=== PATIENT | male | born 1960 | race African-American/Black ===

== ENCOUNTER 2017-06-23 10:45 | Emergency (ER) | payer MEDICAID ==
--- NOTE | 2017-06-23 11:44 | ER Document Report ---
HPI - HPI Patient complains to provider of: chronic right shoulder blade/muscle pain Onset: Other Pain Level: Denies Context: 56-year-old male complaining of muscle pain around his right shoulder blade. He was told that it was a pinched nerve when he was incarcerated in physical therapy made it go away. This episode has been there several months. Is worse when he uses his right arm. There is no cervical neck pain. No paresthesias. - MUSCULOSKELETAL Musculoskeletal: REPORTS: Extremity pain - right shoulder pain Past Medical History - General Information source: Patient - Social History Smoking Status: Never Smoker Frequency of alcohol use: Social Drug Abuse: Marijuana Lives with: Family Family History: None Patient has suicidal ideation: No Patient has homicidal ideation: No - Past Medical History Cardiac Medical History: Reports: Hx Hypertension - borderline Pulmonary Medical History: Reports: Hx Asthma Renal/ Medical History: Denies: Hx Peritoneal Dialysis Surgical Hx: Negative Vertical Provider Document - CONSTITUTIONAL Agree With Documented VS: Yes Exam Limitations: No Limitations - INFECTION CONTROL TRAVEL OUTSIDE OF THE [place] IN LAST 30 DAYS: No - HEENT HEENT: Normal ENT Exam, Normocephalic - NECK Neck: Supple, Thyroid Normal. negative: Lymphadenopathy-Left, Lymphadenopathy- Right - RESPIRATORY Respiratory: Breath Sounds Normal, No Respiratory Distress - CARDIOVASCULAR Cardiovascular: Regular Rate, Regular Rhythm - GI/ABDOMEN Gastrointestinal: Abdomen Soft, Abdomen Non-Tender - MUSCULOSKELETAL/EXTREMETIES Musculoskeletal/Extremeties: MAEW, Tender - right periscapular muscles - NEURO Level of Consciousness: Awake, Alert - DERM Integumentary: Warm, Dry, No Rash Course - Re-evaluation Re-evalutation: 06/23/17 CBC and chemistry are within normal limits the BUN and creatinine are normal will start on lisinopril and have him follow-up with family practice doctor within the next month. - Vital Signs Vital signs: Temp Pulse Resp BP Pulse Ox 97.7 F 104 H 16 168/110 H 97 06/23/17 10:59 06/23/17 10:59 06/23/17 10:59 06/23/17 11:13 06/23/17 10:59 - Laboratory Result Diagrams: 06/23/17 12:13 06/23/17 12:13 Discharge - Discharge Clinical Impression: Chronic right periscapular muscle pain Hypertension Qualifiers: Hypertension type: unspecified Qualified Code(s): I10 - Essential (primary) hypertension Condition: Good Disposition: HOME, SELF-CARE Instructions: Angiotensin Converting Enzyme Inhibitor Medication ([facility]), Anti- Inflammatory Medication ([facility]), High Blood Pressure, Requiring Treatment ([facility]), Muscle Relaxers ([facility]), Warm Packs ([facility]) Additional Instructions: warm compress See family practice doctor for your follow-up care and recheck on your blood pressures referral has been given to you in this paperwork Copy of lab were given to you motrin up to three times per day (800mg per dose) tylenol up to 4000 mg per day for pain flexeril muscle relaxer Prescriptions: Ibuprofen [Motrin 800 mg Tablet] 800 mg PO Q8HP PRN #30 tablet PRN Reason: Cyclobenzaprine HCl [Flexeril 10 Mg Tablet] 10 mg PO TIDP PRN #20 tablet PRN Reason: Lisinopril 20 mg PO DAILY #30 tablet Forms: Elevated Blood Pressure Referrals: JEAN ESCALONA MD [ACTIVE STAFF] - Follow up as needed SEN ALCALA MD [ACTIVE STAFF] - Follow up as needed
[2017-06-23 12:31] LABS: ABSOLUTE EOSINOPHILS # (AUTO) 0.4 10^3/uL (0.0-0.6); ABSOLUTE LYMPHOCYTES (AUTO) 1.3 10^3/uL (0.5-4.7); ABSOLUTE MONOCYTES (AUTO) 0.5 10^3/uL (0.1-1.4); ABSOLUTE NEUT (AUTO) 2.3 10^3/uL (1.7-8.2); BASOPHILS % (AUTO) 0.7 % (0-2); EOSINOPHILS % (AUTO) 8.3 % (0-6); HEMATOCRIT 45.9 % (37.9-51.0); HEMOGLOBIN 14.2 g/dL (13.5-17.0); LYMPHOCYTES % (AUTO) 28.1 % (13-45); MEAN CORPUSCULAR HEMOGLOBIN 22.7 pg (27.0-33.4); MEAN CORPUSCULAR VOLUME 74 fl (80-97); PLATELET COUNT 242 10^3/uL (150-450); RED BLOOD COUNT 6.25 10^6/uL (4.35-5.55); RED CELL DISTRIBUTION WIDTH 15.2 % (11.5-14.0); SEGMENTED NEUTROPHILS % (AUTO) 51.9 % (42-78); TOTAL CELLS COUNTED % (AUTO) 100 %; WHITE BLOOD COUNT 4.5 10^3/uL (4.0-10.5)
[2017-06-23 12:45] LABS: ALANINE AMINOTRANSFERASE 58 U/L (21-72); ALBUMIN 4.2 g/dL (3.5-5.0); ALKALINE PHOSPHATASE 78 U/L (38-126); ANION GAP 10 (5-19); ASPARTATE AMINO TRANSFERASE 39 U/L (17-59); BILIRUBIN,DIRECT 0.2 mg/dL (0.0-0.4); BILIRUBIN,TOTAL 1.3 mg/dL (0.2-1.3); BLOOD UREA NITROGEN 17 mg/dL (7-20); CALCIUM 9.9 mg/dL (8.4-10.2); CARBON DIOXIDE 26 mmol/L (22-30); CHLORIDE 106 mmol/L (98-107); GLUCOSE 113 mg/dL (75-110); POTASSIUM 4.4 mmol/L (3.6-5.0); SODIUM 142.1 mmol/L (137-145); TOTAL PROTEIN 7.4 g/dL (6.3-8.2)
[2017-06-23] MEDS ORDERED: IBUPROFEN 800 MG TABLET PO ONE (12:59)
[2017-06-23] MEDS ORDERED: LISINOPRIL 10 MG TABLET PO ONE (12:59)
[2017-06-23] MEDS ORDERED: ACETAMINOPHEN 325 MG TABLET PO ONE (12:59)
[2017-06-23 13:09] VITALS: BP 169/111
== END 2017-06-23 13:12 | disposition home or self-care (01) ==
LOC: ER 10:45
DX: M25.511 Pain in right shoulder (principal); G89.29 Other chronic pain; I10 Essential (primary) hypertension; J45.909 Unspecified asthma, uncomplicated; F12.10 Cannabis abuse, uncomplicated
CPT/HCPCS: 99283; 36415; 85025; 80053; J3490 ×3

== ENCOUNTER → 2017-07-09 | Outpatient (CLI) | payer OTHER ==
--- NOTE | 2017-07-09 10:06 | RADIOLOGY REPORT (SQ) ---
EXAM DESCRIPTION: HAND BILATERAL 3 VIEWS COMPLETED DATE/TIME: 07/09/2017 9:53 am REASON FOR STUDY: HAND ISSUES COMPARISON: None. EXAM PARAMETERS: NUMBER OF VIEWS: Three views. TECHNIQUE: AP, lateral and oblique radiographic images acquired of the right and left hand. LIMITATIONS: None. FINDINGS: MINERALIZATION: Normal. BONES: No acute fracture or dislocation. No worrisome bone lesions. No significant osteophytes. JOINTS: No erosions. No cal-articular osteopenia. No chondrocalcinosis. SOFT TISSUES: No swelling. No calcifications. OTHER: No other significant finding. IMPRESSION: NEGATIVE STUDY OF THE RIGHT and left HAND. NO ACUTE TRAUMATIC CHANGES. NO EXPLANATION F OR PAIN. TECHNICAL DOCUMENTATION: JOB ID: [id number] [employer]- All Rights Reserved Reading location - IP/workstation name: [email or web address]
== END ==
LOC: RAD 09:25
PROVIDERS: ATTEND Family Medicine
DX: M25.442 Effusion, left hand (principal); M25.441 Effusion, right hand

== ENCOUNTER → 2017-08-15 | Outpatient (CLI) | payer OTHER ==
--- NOTE | 2017-08-15 10:48 | RADIOLOGY REPORT (SQ) ---
EXAM DESCRIPTION: HIP BILATERAL COMPLETED DATE/TIME: 08/15/2017 10:05 am REASON FOR STUDY: DAMAGED NERVE IN BACK COMPARISON: None. NUMBER OF VIEWS: 3 images total TECHNIQUE: AP pelvis and additional frog-leg view of the right and left hip. LIMITATIONS: None. FINDINGS: MINERALIZATION: Normal. PRIMARY HIP: No fracture or dislocation. No worrisome bone lesions. Joint space maintained OPPOSITE HIP: No fracture or dislocation. No worrisome bone lesions. Joint space maintained. PUBIS AND ISCHIUM: No fracture. PELVIS: No fracture. SACRUM: No fracture or dislocation. No worrisome bone lesions. LOWER LUMBAR SPINE: No fracture or dislocation. No worrisome bone lesions. No significant disc disea se. SOFT TISSUES: No findings. OTHER: If an occult fracture suspected clinically, consider followup imaging. IMPRESSION: Nothing acute. TECHNICAL DOCUMENTATION: JOB ID: [id number] [employer]- All Rights Reserved Reading location - IP/workstation name: [email or web address]
== END ==
LOC: RAD 09:49
PROVIDERS: ATTEND Family Medicine
DX: S24.9XXA Injury of unspecified nerve of thorax, initial encounter (principal); X58.XXXA Exposure to other specified factors, initial encounter; Y93.9 Activity, unspecified; Y92.9 Unspecified place or not applicable
CPT/HCPCS: 73522

== ENCOUNTER 2017-09-05 08:55 | Day surgery (SDC) | payer MEDICAID, OTHER ==
[~2017-09-05 08:55] MED LIST: KETOROLAC TROMETHAMINE 0.45% 4 DROP/0.4 ML DROPERETTE OD PRN
[2017-09-05] MEDS ORDERED: EPINEPHRINE INJ/PF 1 MG/1 ML AMPULE ONE (08:56)
[2017-09-05] MEDS ORDERED: LIDOCAINE 1% INJ-PF (10 MG/ML) 30 ML SDV ONE (08:57)
[2017-09-05] MEDS ORDERED: TOBRAMYCIN SULFATE/DEXAMETH OPH OINTMENT 3.5 GM ONE (08:57)
[2017-09-05] MEDS ORDERED: CHONDR SU A NA/HYALUR INTRAOC KIT (SURGICARE) ONE (08:57)
[2017-09-05] MEDS ORDERED: MIDAZOLAM 2 MG/2 ML INJ ONE (09:18)
[2017-09-05] MEDS: BESIFLOXACIN HCL 0.6% OPH SUSP 5 ML BOTTLE OD PRN ×3 (09:30→10:26)
[2017-09-05] MEDS: CYCLOPENTOLATE 0.2%/PHENYLEPHRINE 1% OPH SOLN 2 ML OD PRN ×3 (09:30→09:50)
[2017-09-05] MEDS: TROPICAMIDE 1% OPH SOLN 3 ML OD PRN ×3 (09:30→09:50)
[2017-09-05] MEDS: TETRACAINE HCL 0.5% OPH SOLN 0.6 ML DROPERETTE OD PRN ×3 (09:31→10:08)
== END 2017-09-05 10:58 | disposition home or self-care (01) ==
LOC: SC 08:55
PROVIDERS: ATTEND Ophthalmology
DX: H25.11 Age-related nuclear cataract, right eye (principal); J45.909 Unspecified asthma, uncomplicated; I10 Essential (primary) hypertension; M19.90 Unspecified osteoarthritis, unspecified site; Z79.51 Long term (current) use of inhaled steroids; Z79.899 Other long term (current) drug therapy; Z87.891 Personal history of nicotine dependence; Z79.1 Long term (current) use of non-steroidal anti-inflammatories (NSAID)
CPT/HCPCS: 66984; V2630; J2250; J3490 ×5; J0171; 142

== ENCOUNTER 2017-09-19 06:48 | Day surgery (SDC) | payer MEDICAID, OTHER ==
[~2017-09-19 06:48] MED LIST changes: -KETOROLAC TROMETHAMINE 0.45% 4 DROP/0.4 ML DROPERETTE OD PRN; +KETOROLAC TROMETHAMINE 0.45% 4 DROP/0.4 ML DROPERETTE OS PRN; +MIDAZOLAM 2 MG/2 ML INJ ONE
[2017-09-19] MEDS: TROPICAMIDE 1% OPH SOLN 3 ML OS PRN ×3 (06:59→07:29)
[2017-09-19] MEDS: CYCLOPENTOLATE 0.2%/PHENYLEPHRINE 1% OPH SOLN 2 ML OS PRN ×3 (06:59→07:29)
[2017-09-19] MEDS: BESIFLOXACIN HCL 0.6% OPH SUSP 5 ML BOTTLE OS PRN ×4 (07:00→08:15)
[2017-09-19] MEDS: TETRACAINE HCL 0.5% OPH SOLN 0.6 ML DROPERETTE OS PRN ×3 (07:01→07:53)
[2017-09-19] MEDS ORDERED: LIDOCAINE 1% INJ-PF (10 MG/ML) 30 ML SDV ONE (07:13)
[2017-09-19] MEDS ORDERED: CHONDR SU A NA/HYALUR INTRAOC KIT (SURGICARE) ONE (07:13)
[2017-09-19] MEDS ORDERED: EPINEPHRINE INJ/PF 1 MG/1 ML AMPULE ONE (07:13)
[2017-09-19] MEDS: TOBRAMYCIN SULFATE/DEXAMETH OPH OINTMENT 3.5 GM ONE ×2 (08:15)
== END 2017-09-19 08:55 | disposition home or self-care (01) ==
LOC: SC 06:48
PROVIDERS: ATTEND Ophthalmology
DX: H25.12 Age-related nuclear cataract, left eye (principal); Z98.41 Cataract extraction status, right eye; J45.909 Unspecified asthma, uncomplicated; I10 Essential (primary) hypertension; Z79.51 Long term (current) use of inhaled steroids; Z79.899 Other long term (current) drug therapy; Z87.891 Personal history of nicotine dependence
CPT/HCPCS: 66984; V2630; J2250; J3490 ×5; J0171; 142

== ENCOUNTER 2018-07-24 13:46 | Emergency (ER) | payer MEDICAID, OTHER ==
[2018-07-24] MEDS ORDERED: IBUPROFEN 800 MG TABLET PO ONE (15:39)
[2018-07-24] MEDS ORDERED: ONDANSETRON 4 MG TAB.RAPDIS PO ONE (15:39)
--- NOTE | 2018-07-24 15:43 | ER Document Report ---
HPI - HPI Time Seen by Provider: 07/24/18 15:31 Pain Level: 5 Past Medical History - Social History Smoking Status: Never Smoker Family History: None - Past Medical History Cardiac Medical History: Reports: Hx Atrial Fibrillation, Hx Hypertension - medicated Denies: Hx Heart Attack Pulmonary Medical History: Reports: Hx Asthma - inhaler prn/no hospitalizations Neurological Medical History: Denies: Hx Cerebrovascular Accident, Hx Seizures Renal/ Medical History: Denies: Hx Peritoneal Dialysis GI Medical History: Denies: Hx Hepatitis, Hx Hiatal Hernia, Hx Ulcer Infectious Medical History: Denies: Hx Hepatitis Past Surgical History: Denies: Hx Open Heart Surgery, Hx Pacemaker Vertical Provider Document - INFECTION CONTROL TRAVEL OUTSIDE OF THE [place] IN LAST 30 DAYS: No Course - Vital Signs Vital signs: Temp Pulse Resp BP Pulse Ox 97.9 F 102 H 18 117/75 96 07/24/18 14:07 07/24/18 14:07 07/24/18 14:07 07/24/18 14:07 07/24/18 14:07 - Laboratory Result Diagrams: 07/24/18 15:54 07/24/18 15:54 Discharge - Discharge Referrals: MAYCO PRUITT FNP-C [Primary Care Provider] - Follow up as needed
[2018-07-24 16:19] LABS: ABSOLUTE EOSINOPHILS # (AUTO) 0.1 10^3/uL (0.0-0.6); ABSOLUTE MONOCYTES (AUTO) 0.7 10^3/uL (0.1-1.4); BASOPHILS % (AUTO) 0.6 % (0-2); EOSINOPHILS % (AUTO) 2.1 % (0-6); HEMATOCRIT 45.7 % (37.9-51.0); HEMOGLOBIN 14.4 g/dL (13.5-17.0); LYMPHOCYTES % (AUTO) 17.8 % (13-45); MEAN CORPUSCULAR HEMOGLOBIN 23.2 pg (27.0-33.4); MEAN CORPUSCULAR HGB CONC 31.5 g/dL (32.0-36.0); MEAN CORPUSCULAR VOLUME 74 fl (80-97); MONOCYTES % (AUTO) 11.6 % (3-13); PLATELET COUNT 303 10^3/uL (150-450); RED CELL DISTRIBUTION WIDTH 15.6 % (11.5-14.0); SEGMENTED NEUTROPHILS % (AUTO) 67.9 % (42-78); TOTAL CELLS COUNTED % (AUTO) 100 %; WHITE BLOOD COUNT 5.9 10^3/uL (4.0-10.5)
[2018-07-24 16:23] LABS: APPEARANCE,URINE TURBID; BILIRUBIN,URINE SMALL (NEGATIVE); COLOR,URINE AMBER; GLUCOSE, URINE NEGATIVE (NEGATIVE); KETONES,URINE TRACE mg/dL (NEGATIVE); LEUKOCYTE ESTERASE,URINE NEGATIVE (NEGATIVE); NITRITE,URINE NEGATIVE (NEGATIVE); PROTEIN,URINE 100 mg/dL (NEGATIVE); URINE SPECIFIC GRAVITY 1.027
[2018-07-24 16:43] LABS: ALANINE AMINOTRANSFERASE 112 U/L (21-72); ALBUMIN 4.7 g/dL (3.5-5.0); ALKALINE PHOSPHATASE 110 U/L (38-126); ANION GAP 15 (5-19); ASPARTATE AMINO TRANSFERASE 106 U/L (17-59); BILIRUBIN,DIRECT 0.6 mg/dL (0.0-0.4); BILIRUBIN,TOTAL 1.3 mg/dL (0.2-1.3); BLOOD UREA NITROGEN 33 mg/dL (7-20); CALCIUM 10.8 mg/dL (8.4-10.2); CARBON DIOXIDE 26 mmol/L (22-30); CHLORIDE 101 mmol/L (98-107); GLUCOSE 114 mg/dL (75-110); POTASSIUM 3.7 mmol/L (3.6-5.0); SODIUM 142.1 mmol/L (137-145); TOTAL PROTEIN 8.7 g/dL (6.3-8.2)
[2018-07-24] MEDS ORDERED: NORMAL SALINE 1000 ML 1,000 ML IV PRN (17:11)
--- NOTE | 2018-07-24 17:12 | ER Document Report ---
ED Medical Screen (RME) - General Chief Complaint: Flank Pain Stated Complaint: PAIN ON RIGHT SIDE Time Seen by Provider: 07/24/18 15:31 Primary Care Provider: MAYCO PRUITT FNP-C [Primary Care Provider] - Follow up as needed TRAVEL OUTSIDE OF THE [place] IN LAST 30 DAYS: No - HPI Notes: 07/24/18 17:10 Patient is a 58-year-old male with a history of hypertension who presents the emergency department complaining of posterior right proximal leg pain that began around lunchtime. 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 Patient states that the back pain has since resolved, the patient does continue to have pain in the backside of his leg. He is not aware of any injury or movement that precipitated the event. Pain does not radiate. He is still able to eat and drink without difficulty, but does have occasional nausea when the pain gets severe. He is urinating normally and having normal bowel movements. He is able to ambulate, but states that he is limping. No h/o spinal abscess, DM, or IV drug abuse. No other concerns or complaints at this time. Denies any prolonged immobilization, distance travel, recent surgery/trauma, personal cancer history, hormone use, smoking, or previous DVT/PE. Denies any headache, fever, neck pain, URI, sore throat, chest pain, palpitations, syncope, cough, shortness of breath, wheeze, dyspnea, abdo ana pain, nausea/vomiting/diarrhea, urinary retention, dysuria, hematuria, loss of control of bowel or bladder, numbness/tingling, saddle anesthesia, muscle paralysis/weakness, or rash. I have treated and performed a rapid initial assessment of this patient. A comprehensive ED assessment and evaluation of the patient, analysis of test results and completion of medical decision making process will be conducted by additional ED providers. PHYSICAL EXAMINATION: GENERAL: Well-appearing, well-nourished and in no acute distress. LUNGS: Breath sounds clear to auscultation bilaterally and equal. No wheezes rales or rhonchi. HEART: Regular rate and rhythm without murmurs, rubs, gallops. ABDOMEN: Soft, nontender, nondistended abdomen. No guarding, no rebound. Normal bowel sounds present. No CVA tenderness bilaterally. No pulsatile mass Musculoskeletal: LE's b/l: FROM to passive/active. Strength 5+/5. No deficits noted. No bony tenderness of extremities. Back: FROM to passive/active. Strength 5+/5. No vertebral point tenderness, stepoffs, or deformities. No other bony tenderness, erythema, swelling, or ecchymosis. SLR negative b/l. Non-tender. No SI jt tenderness. No foot drop Rt LE: FROM. Strength 5+/5. N/v intact distal. I am able to reproduce the symptoms by palpating the posterior prox leg, but it also improves his reported symptoms. Extremities: No cyanosis, clubbing, or edema b/l. Peripheral pulses 2+. Capillary refill less than 2 seconds. NEUROLOGICAL: Normal speech, limping gait. Normal sensory, motor exams. Reflexes 2+ b/l. PSYCH: Normal mood, normal affect. SKIN: Warm, Dry, normal turgor, no rashes or lesions noted. - Related Data Allergies/Adverse Reactions: SEAFOOD Allergy (Severe, Uncoded 07/24/18 13:57) FACIAL SWELLING TO INCLUDE MOUTH/TONGUE Past Medical History - Social History Frequency of alcohol use: None Drug Abuse: Marijuana - Past Medical History Cardiac Medical History: Reports: Hx Atrial Fibrillation, Hx Hypertension - medicated Denies: Hx Heart Attack Pulmonary Medical History: Reports: Hx Asthma - inhaler prn/no hospitalizations Neurological Medical History: Denies: Hx Cerebrovascular Accident, Hx Seizures Renal/ Medical History: Denies: Hx Peritoneal Dialysis GI Medical History: Denies: Hx Hepatitis, Hx Hiatal Hernia, Hx Ulcer Infectious Medical History: Denies: Hx Hepatitis Past Surgical History: Denies: Hx Open Heart Surgery, Hx Pacemaker Physical Exam - Vital signs Vitals: Temp Pulse Resp BP Pulse Ox 97.9 F 102 H 18 117/75 96 07/24/18 14:07 07/24/18 14:07/24/18 14:07/24/18 14:07/24/18 14:07 Course - Vital Signs Vital signs: Temp Pulse Resp BP Pulse Ox 97.9 F 102 H 18 117/75 96 07/24/18 14:07 07/24/18 14:07/24/18 14:07/24/18 14:07 07/24/18 14:07 - Laboratory Result Diagrams: 07/24/18 15:54 07/24/18 15:54 Laboratory results interpreted by me: 07/24/18 07/24/18 07/24/18 15:54 15:54 15:54 RBC 6.20 H MCV 74 L MCH 23.2 L MCHC 31.5 L RDW 15.6 H BUN 33 H Creatinine 2.30 H Est GFR ( Amer) 36 L Est GFR (Non-Af Amer) 30 L Glucose 114 H Calcium 10.8 H Direct Bilirubin 0.6 H AST 106 H ALT 112 H Total Protein 8.7 H Urine Protein 100 H Urine Ketones TRACE H Urine Bilirubin SMALL H Urine Urobilinogen 4.0 H Doctor's Discharge - Discharge Referrals: MAYCO PRUITT FNP-C [Primary Care Provider] - Follow up as needed
--- NOTE | 2018-07-24 18:57 | RADIOLOGY REPORT (SQ) ---
EXAM DESCRIPTION: VENOUS UNILATERAL LOWER COMPLETED DATE/TIME: 07/24/2018 6:48 pm REASON FOR STUDY: rt posterior prox leg pain COMPARISON: None. TECHNIQUE: Dynamic and static mcgarry scale and color images acquired of the right leg venous system. S elected spectral images acquired with additional compression and augmentation maneuvers. The contrala teral common femoral vein and saphenofemoral junction were also imaged. Images stored on PACS. LIMITATIONS: None. FINDINGS: COMMON FEMORAL: Normal phasicity, compression and augmentation. No visualized echogenic ma terial on mcgarry scale. No defects on color images. FEMORAL: Normal compression and augmentation. No visualized echogenic material on mcgarry scale. No defe cts on color images. POPLITEAL: Normal compression, augmentation. No visualized echogenic material on mcgarry scale. No defec ts on color images. CALF VESSELS: Normal compression, augmentation. No visualized echogenic material on mcgarry scale. No de fects on color images. GSV and SSV: Normal compression, augmentation. No visualized echogenic material on mcgarry scale. No def ects on color images. ANY DEEP VENOUS INSUFFICIENCY: Not evaluated. ANY EVIDENCE OF POPLITEAL CYST: No. OTHER: No other significant finding. CONTRALATERAL COMMON FEMORAL VEIN AND SAPHENOFEMORAL JUNCTION: Normal phasicity, compression and augmentation. No visualized echogenic material on mcgarry scale. No de fects on color images. IMPRESSION: NO EVIDENCE DVT OR SVT IN THE RIGHT LEG. TECHNICAL DOCUMENTATION: JOB ID: [id number] [employer]- All Rights Reserved Reading location - IP/workstation name: [email or web address]
--- NOTE | 2018-07-24 19:35 | RADIOLOGY REPORT (SQ) ---
EXAM DESCRIPTION: U/S ABDOMEN LIMITED W/O DOP COMPLETED DATE/TIME: 07/24/2018 7:26 pm REASON FOR STUDY: elevated bili/lft's COMPARISON: None. TECHNIQUE: Dynamic and static grayscale images acquired of the abdomen and recorded on PACS. Additio micheal selected color Doppler and spectral images recorded. LIMITATIONS: None. FINDINGS: PANCREAS: Poorly seen. LIVER: Increased echogenicity. Mild hepatomegaly. LIVER VASCULATURE: Normal directional flow of the main portal vein and hepatic veins. GALLBLADDER: Partially contracted. No stones. Normal wall thickness. No pericholecystic fluid. ULTRASOUND-DETECTED ROUSSEAU'S SIGN: Negative. INTRAHEPATIC DUCTS AND COMMON DUCT: CBD and intrahepatic ducts normal caliber. No filling defects. INFERIOR VENA CAVA: Not imaged. AORTA: No aneurysm. RIGHT KIDNEY: Normal size, 11.3 cm. Normal echogenicity. No solid or suspicious masses. No hydroneph rosis. No calcifications. PERITONEAL AND RIGHT PLEURAL SPACE: No ascites or effusions. OTHER: No other significant findings. IMPRESSION: NORMAL RIGHT UPPER QUADRANT ULTRASOUND. TECHNICAL DOCUMENTATION: JOB ID: [id number] [employer]- All Rights Reserved Reading location - IP/workstation name: [email or web address]
--- NOTE | 2018-07-24 19:47 | ER Document Report ---
ED General - General Chief Complaint: Flank Pain Stated Complaint: PAIN ON RIGHT SIDE Time Seen by Provider: 07/24/18 15:31 Primary Care Provider: MAYCO REVELES FNP-C [Primary Care Provider] - Follow up as needed Notes: Patient is a 58-year-old male that presents to the emergency department for chief complaint of right flank pain. Patient reports that he was having intermittent right flank pain over the past few days. He described as an aching pain, and it came and went, could not associated with anything in particular. He describes the pain as a 4 out of 10. He denies any dysuria, hematuria or urinary frequency. Denies any chest pain, anterior abdominal pain, nausea or vomiting. Denies having pain like this in the past. He states now on my exam that the pain is resolved, and overall he is feeling better. Past Medical History: Hypertension Past Surgical History: Cataract surgery Social History: Admits to smoking cigarettes, drinking alcohol, 1 pint of liquor daily, denies illicit drug use. Primary care physician is Dr. Reveles Family History: Reviewed and noncontributory for presenting illness Allergies: Reviewed, see documented allergy list. REVIEW OF SYSTEMS: Other than noted above, the 12 point review of systems was reviewed with the patient and were negative, all pertinent findings are included in the HPI. PHYSICAL EXAMINATION: Vital signs reviewed, nursing noted reviewed. GENERAL: Well-appearing, well-nourished and in no acute distress. HEAD: Atraumatic, normocephalic. EYES: Eyes appear normal, extraocular movements intact, sclera anicteric, conjunctiva are normal. ENT: nares patent, oropharynx clear without exudates. Moist mucous membranes. NECK: Normal range of motion, supple without lymphadenopathy LUNGS: Breath sounds clear to auscultation bilaterally and equal. No wheezes rales or rhonchi. HEART: Regular rate and rhythm without murmurs ABDOMEN: Soft, nontender, normoactive bowel sounds. No rebound, guarding, or rigidity. No masses appreciated. No CVA or flank tenderness with palpation EXTREMITIES: Nontender, good range of motion, no pitting or edema. NEUROLOGICAL: No focal neurological deficits. Moves all extremities spontaneously Motor and sensory grossly intact on exam. PSYCH: Normal mood, normal affect. SKIN: Warm, Dry, normal turgor, no rashes or lesions noted on exposed skin TRAVEL OUTSIDE OF THE [place] IN LAST 30 DAYS: No - Related Data Allergies/Adverse Reactions: SEAFOOD Allergy (Severe, Uncoded 07/24/18 13:57) FACIAL SWELLING TO INCLUDE MOUTH/TONGUE Past Medical History - Social History Smoking Status: Never Smoker Frequency of alcohol use: None Drug Abuse: Marijuana Family History: None Patient has suicidal ideation: No Patient has homicidal ideation: No - Past Medical History Cardiac Medical History: Reports: Hx Atrial Fibrillation, Hx Hypertension - medicated Denies: Hx Heart Attack Pulmonary Medical History: Reports: Hx Asthma - inhaler prn/no hospitalizations Neurological Medical History: Denies: Hx Cerebrovascular Accident, Hx Seizures Renal/ Medical History: Denies: Hx Peritoneal Dialysis GI Medical History: Denies: Hx Hepatitis, Hx Hiatal Hernia, Hx Ulcer Infectious Medical History: Denies: Hx Hepatitis Past Surgical History: Denies: Hx Open Heart Surgery, Hx Pacemaker Physical Exam - Vital signs Vitals: Temp Pulse Resp BP Pulse Ox 97.9 F 102 H 18 117/75 96 07/24/18 14:07 07/24/18 14:07 07/24/18 14:07 07/24/18 14:07 07/24/18 14:07 Course - Re-evaluation Re-evalutation: Patient seen and examined vital signs reviewed. Laboratory data and/or imaging were ordered as appropriate for the patient's presenting symptoms and complaint, with consideration of any critical or life threatening conditions that may be associated with their obtained history and exam as noted above. Patient was treated with IV fluids, in triage he was given Motrin p.o., and Zofran. Results were reviewed when available and demonstrated negative CT imaging of the abdomen and pelvis, no renal stone, or evidence of hydronephrosis, there was an incidental adrenal mass, patient given copy results to follow-up with his primary care, blood work demonstrated a elevation of the patient's BUN/creatinine, with protein in the urine, possibly hypertensive versus dehydration, I did discuss this with the train operator Dr. Branch, and she will follow-up with him in the office, I do not feel the patient needs it be admitted as the patient is urinating without issue and has normal electrolytes, no acidosis. The patient was re-evaluated and was stable, and improved Evaluation was most consistent with right flank pain, unknown cause, azotemia, will discharge the patient advised follow-up with nephrology, advised test continuing hydrochlorothiazide at this time, and discussed with him alcohol abuse. Results were discussed with the patient at this point, after careful consideration I feel that that patient can be discharged from the emergency department, the patient was educated treatments and reasons to return to the emergency department based on their presumed diagnosis as noted above, they were advised to followup with a primary care physician in 2-3 days. Patient was agreeable to plan of care. *Note is created using voice recognition software and may contain spelling, syntax or grammatical errors. Laboratory 07/24/18 07/24/18 07/24/18 15:54 15:54 15:54 WBC 5.9 RBC 6.20 H Hgb 14.4 Hct 45.7 MCV 74 L MCH 23.2 L MCHC 31.5 L RDW 15.6 H Plt Count 303 Seg Neutrophils % 67.9 Lymphocytes % 17.8 Monocytes % 11.6 Eosinophils % 2.1 Basophils % 0.6 Absolute Neutrophils 4.0 Absolute Lymphocytes 1.0 Absolute Monocytes 0.7 Absolute Eosinophils 0.1 Absolute Basophils 0.0 Sodium 142.1 Potassium 3.7 Chloride 101 Carbon Dioxide 26 Anion Gap 15 BUN 33 H Creatinine 2.30 H Est GFR ( Amer) 36 L Est GFR (Non-Af Amer) 30 L Glucose 114 H Calcium 10.8 H Total Bilirubin 1.3 Direct Bilirubin 0.6 H Neonat Total Bilirubin Not Reportable Neonat Direct Bilirubin Not Reportable Neonat Indirect Bili Not Reportable AST 106 H ALT 112 H Alkaline Phosphatase 110 Creatine Kinase Total Protein 8.7 H Albumin 4.7 Urine Color JABIER Urine Appearance TURBID Urine pH 5.0 Ur Specific [place] 1.027 Urine Protein 100 H Urine Glucose (UA) NEGATIVE Urine Ketones TRACE H Urine Blood NEGATIVE Urine Nitrite NEGATIVE Urine Bilirubin SMALL H Urine Urobilinogen 4.0 H Ur Leukocyte Esterase NEGATIVE Urine WBC (Auto) 15 Urine RBC (Auto) 5 U Hyaline Cast (Auto) 92 Urine Bacteria (Auto) TRACE Squamous Epi Cells Auto 1 Urine Mucus (Auto) MANY Urine Ascorbic Acid NEGATIVE 07/24/18 15:54 WBC RBC Hgb Hct MCV MCH MCHC RDW Plt Count Seg Neutrophils % Lymphocytes % Monocytes % Eosinophils % Basophils % Absolute Neutrophils Absolute Lymphocytes Absolute Monocytes Absolute Eosinophils Absolute Basophils Sodium Potassium Chloride Carbon Dioxide Anion Gap BUN Creatinine Est GFR ( Amer) Est GFR (Non-Af Amer) Glucose Calcium Total Bilirubin Direct Bilirubin Neonat Total Bilirubin Neonat Direct Bilirubin Neonat Indirect Bili AST ALT Alkaline Phosphatase Creatine Kinase 910 H Total Protein Albumin Urine Color Urine Appearance Urine pH Ur Specific [place] Urine Protein Urine Glucose (UA) Urine Ketones Urine Blood Urine Nitrite Urine Bilirubin Urine Urobilinogen Ur Leukocyte Esterase Urine WBC (Auto) Urine RBC (Auto) U Hyaline Cast (Auto) Urine Bacteria (Auto) Squamous Epi Cells Auto Urine Mucus (Auto) Urine Ascorbic Acid Venous Doppler Study 07/24/18 15:39 IMPRESSION: NO EVIDENCE DVT OR SVT IN THE RIGHT LEG. Abdomen Ultrasound 07/24/18 17:11 IMPRESSION: NORMAL RIGHT UPPER QUADRANT ULTRASOUND. Abdomen/Pelvis CT 07/24/18 19:46 IMPRESSION: No acute intra-abdominal abnormality is identified. Specifically no evidence of hydronephrosis or obstructive uropathy Indeterminate lesion in the left adrenal gland. Recommend follow-up with three-phase CT or MRI with chemical shift imaging - Vital Signs Vital signs: Temp Pulse Resp BP Pulse Ox 97.9 F 102 H 18 117/75 96 07/24/18 14:07 07/24/18 14:07 07/24/18 14:07 07/24/18 14:07 07/24/18 14:07 - Laboratory Result Diagrams: 07/24/18 15:54 07/24/18 15:54 Laboratory results interpreted by me: 07/24/18 07/24/18 07/24/18 15:54 15:54 15:54 RBC 6.20 H MCV 74 L MCH 23.2 L MCHC 31.5 L RDW 15.6 H BUN 33 H Creatinine 2.30 H Est GFR ( Amer) 36 L Est GFR (Non-Af Amer) 30 L Glucose 114 H Calcium 10.8 H Direct Bilirubin 0.6 H AST 106 H ALT 112 H Creatine Kinase Total Protein 8.7 H Urine Protein 100 H Urine Ketones TRACE H Urine Bilirubin SMALL H Urine Urobilinogen 4.0 H 07/24/18 15:54 RBC MCV MCH MCHC RDW BUN Creatinine Est GFR ( Amer) Est GFR (Non-Af Amer) Glucose Calcium Direct Bilirubin AST ALT Creatine Kinase 910 H Total Protein Urine Protein Urine Ketones Urine Bilirubin Urine Urobilinogen Discharge - Discharge Clinical Impression: Azotemia, Right flank pain Condition: Stable Disposition: HOME, SELF-CARE Instructions: Flank Pain ([facility]) Additional Instructions: Please stop taking your hydrochlorothiazide medication, and follow-up with Dr. Branch. Please stop taking over the counter pain medications and follow-up with Dr. Reveles as well. Referrals: MAYCO REVELES, SURGICAL INSTRUMENT TECHNICIAN-C [Primary Care Provider] - Follow up in 3-5 days GUY BRANCH MD [ACTIVE STAFF] - Follow up in 3-5 days
--- NOTE | 2018-07-24 20:47 | RADIOLOGY REPORT (SQ) ---
EXAM DESCRIPTION: CT ABDOMEN PELVIS WITHOUT IV CONTRAST COMPLETED DATE/TME: 07/24/2018 19:46 CLINICAL HISTORY: 58 years Male right flank pain COMPARISON: None. TECHNIQUE: Contiguous axial images obtained through the abdomen and pelvis without IV contrast. Reformatted images obtained. This exam was performed according to our department optimization program which includes automated exposure control, adjustment of the mA and/or kv according to patient size and/or use of iterative reconstruction technique. FINDINGS: The lung bases are clear. Enlarged liver measuring 19.4 cm. The spleen and pancreas appear unremarkable. There is an indeterminate adrenal nodule on the left which measures 1.6 by 2 cm. Hounsfield units 23. Recommend follow-up with three-phase CT or MRI with chemical shift imaging. The kidneys appear unremarkable. No hydronephrosis or definite ureteral calculi. The gallbladder is visualized. No aneurysmal dilatation of the aorta. No bowel obstruction. Unremarkable appendix. No free pelvic fluid. IMPRESSION: No acute intra-abdominal abnormality is identified. Specifically no evidence of hydronephrosis or obstructive uropathy Indeterminate lesion in the left adrenal gland. Recommend follow-up with three-phase CT or MRI with chemical shift imaging
[2018-07-24 21:49] VITALS: BP 131/88
== END 2018-07-24 21:52 | disposition home or self-care (01) ==
LOC: ER 13:46
DX: R79.89 Other specified abnormal findings of blood chemistry (principal); R10.9 Unspecified abdominal pain; F17.210 Nicotine dependence, cigarettes, uncomplicated; I10 Essential (primary) hypertension; Z79.899 Other long term (current) drug therapy; J45.909 Unspecified asthma, uncomplicated
CPT/HCPCS: 99285; 96360; 36415; 82550; 85025; 80053; 81001; 93971; 76705; 74176; J3490; S0119; J7030

== ENCOUNTER 2018-10-03 12:13 | Emergency (ER) | payer MEDICAID ==
--- NOTE | 2018-10-03 12:30 | ER Document Report ---
ED Medical Screen (RME) - General Chief Complaint: Heat Exposure Stated Complaint: WEAKNESS Time Seen by Provider: 10/03/18 12:24 Primary Care Provider: MAYCO PRUITT FNP-C [Primary Care Provider] - Follow up as needed Mode of Arrival: Wheelchair Information source: Patient Notes: 58-year-old male presented to ED for complaint of "heat exhaustion". 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 States she is drinking Gatorade but cannot keep up with the sweating. He states he has no other medical history. 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 Patient is alert oriented respirations regular and unlabored speaking in full sentences. I have greeted and performed a rapid initial assessment of this patient. A comprehensive ED assessment and evaluation of the patient, analysis of test results and completion of medical decision making process will be conducted by an additional ED providers. Dictation of this chart was performed using voice recognition software; therefore, there may be some unintended grammatical errors. TRAVEL OUTSIDE OF THE [place] IN LAST 30 DAYS: No - Related Data Allergies/Adverse Reactions: SEAFOOD Allergy (Severe, Uncoded 07/24/18 13:57) FACIAL SWELLING TO INCLUDE MOUTH/TONGUE Past Medical History - Social History Chew tobacco use (# tins/day): No Frequency of alcohol use: Social Drug Abuse: Marijuana - Past Medical History Cardiac Medical History: Reports: Hx Atrial Fibrillation, Hx Hypertension - medicated Denies: Hx Heart Attack Pulmonary Medical History: Reports: Hx Asthma - inhaler prn/no hospitalizations Neurological Medical History: Denies: Hx Cerebrovascular Accident, Hx Seizures Renal/ Medical History: Denies: Hx Peritoneal Dialysis GI Medical History: Denies: Hx Hepatitis, Hx Hiatal Hernia, Hx Ulcer Infectious Medical History: Denies: Hx Hepatitis Past Surgical History: Denies: Hx Open Heart Surgery, Hx Pacemaker Physical Exam - Vital signs Vitals: Temp Pulse Resp BP Pulse Ox 97.5 F 104 H 20 124/95 H 96 10/03/18 12:15 10/03/18 12:15 10/03/18 12:15 10/03/18 12:15 10/03/18 12:15 Course - Vital Signs Vital signs: Temp Pulse Resp BP Pulse Ox 97.5 F 104 H 20 124/95 H 96 10/03/18 12:15 10/03/18 12:15 10/03/18 12:15 10/03/18 12:15 10/03/18 12:15 Doctor's Discharge - Discharge Referrals: MAYCO PRUITT, CHUCKER-C [Primary Care Provider] - Follow up as needed
[2018-10-03] MEDS: RINGERS SOLUTION,LACTATED 1,000 ML IV PRN ×2 (12:42→13:37)
[2018-10-03 13:00] LABS: ABSOLUTE BASOPHILS # (AUTO) 0.1 10^3/uL (0.0-0.2); ABSOLUTE EOSINOPHILS # (AUTO) 0.2 10^3/uL (0.0-0.6); ABSOLUTE LYMPHOCYTES (AUTO) 1.1 10^3/uL (0.5-4.7); ABSOLUTE MONOCYTES (AUTO) 0.8 10^3/uL (0.1-1.4); EOSINOPHILS % (AUTO) 3.6 % (0-6); HEMATOCRIT 41.9 % (37.9-51.0); HEMOGLOBIN 13.1 g/dL (13.5-17.0); LYMPHOCYTES % (AUTO) 17.4 % (13-45); MEAN CORPUSCULAR HEMOGLOBIN 23.1 pg (27.0-33.4); MEAN CORPUSCULAR HGB CONC 31.2 g/dL (32.0-36.0); MEAN CORPUSCULAR VOLUME 74 fl (80-97); MONOCYTES % (AUTO) 13.4 % (3-13); PLATELET COUNT 254 10^3/uL (150-450); RED BLOOD COUNT 5.64 10^6/uL (4.35-5.55); SEGMENTED NEUTROPHILS % (AUTO) 64.6 % (42-78); TOTAL CELLS COUNTED % (AUTO) 100 %; WHITE BLOOD COUNT 6.1 10^3/uL (4.0-10.5)
[2018-10-03 13:15] LABS: ALANINE AMINOTRANSFERASE 60 U/L (21-72); ALBUMIN 4.7 g/dL (3.5-5.0); ALKALINE PHOSPHATASE 101 U/L (38-126); ANION GAP 13 (5-19); ASPARTATE AMINO TRANSFERASE 46 U/L (17-59); BILIRUBIN,DIRECT 0.2 mg/dL (0.0-0.4); BILIRUBIN,TOTAL 0.9 mg/dL (0.2-1.3); BLOOD UREA NITROGEN 31 mg/dL (7-20); CALCIUM 10.7 mg/dL (8.4-10.2); CARBON DIOXIDE 25 mmol/L (22-30); CHLORIDE 102 mmol/L (98-107); CREATINE KINASE 370 U/L (55-170); GLUCOSE 94 mg/dL (75-110); LIPASE 256.9 U/L (23-300); SODIUM 139.5 mmol/L (137-145); TOTAL PROTEIN 8.4 g/dL (6.3-8.2)
[2018-10-03 13:21] LABS: URINE AMPHETAMINES SCREEN NEGATIVE; URINE BARBITURATES SCREEN NEGATIVE; URINE BENZODIAZEPINES SCREEN NEGATIVE; URINE COCAINE SCREEN UNCONFIRMED POSITIVE; URINE MARIJUANA (THC) SCREEN UNCONFIRMED POSITIVE; URINE METHADONE SCREEN NEGATIVE; URINE PHENCYCLIDINE SCREEN NEGATIVE
[2018-10-03 13:23] LABS: APPEARANCE,URINE SLIGHTLY-CLOUDY; BILIRUBIN,URINE NEGATIVE (NEGATIVE); COLOR,URINE YELLOW; GLUCOSE, URINE 50 mg/dL (NEGATIVE); KETONES,URINE NEGATIVE (NEGATIVE); LEUKOCYTE ESTERASE,URINE NEGATIVE (NEGATIVE); NITRITE,URINE NEGATIVE (NEGATIVE); PROTEIN,URINE 100 mg/dL (NEGATIVE); URINE SPECIFIC GRAVITY 1.017; UROBILINOGEN,URINE NEGATIVE mg/dL (<2.0)
[2018-10-03 13:32] LABS: TROPONIN I < 0.012 ng/mL
--- NOTE | 2018-10-03 13:36 | RADIOLOGY REPORT (SQ) ---
EXAM DESCRIPTION: CHEST 2 VIEWS COMPLETED DATE/TIME: 10/03/2018 1:26 pm REASON FOR STUDY: head exhaustion, diaphoresis COMPARISON: None. EXAM PARAMETERS: NUMBER OF VIEWS: two views TECHNIQUE: Digital Frontal and Lateral radiographic views of the chest acquired. RADIATION DOSE: NA LIMITATIONS: none FINDINGS: LUNGS AND PLEURA: No opacities, masses or pneumothorax. No pleural effusion. MEDIASTINUM AND HILAR STRUCTURES: No masses or contour abnormalities. HEART AND VASCULAR STRUCTURES: Heart normal size. No evidence for failure. BONES: No acute findings. HARDWARE: None in the chest. OTHER: No other significant finding. IMPRESSION: NO ACUTE RADIOGRAPHIC FINDING IN THE CHEST. TECHNICAL DOCUMENTATION: JOB ID: [id number] [email or web address]- All Rights Reserved Reading location - IP/workstation name: [email or web address]
[2018-10-03] MEDS ORDERED: NORMAL SALINE 1000 ML 1,000 ML IV ONE (14:57)
--- NOTE | 2018-10-03 15:07 | ER Document Report ---
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 He states he started to have "cramps" all over his body including his abdomen and bilateral legs. He denies any chest pain or shortness of breath. He denies any nausea, vomiting, fevers, or diarrhea. Patient states he had a similar presentation in July of this year. He was doing shalonda work at that time as well. Patient states he feels much better after the fluids have been given. TRAVEL OUTSIDE OF THE [place] IN LAST 30 DAYS: No - Related Data Allergies/Adverse Reactions: SEAFOOD Allergy (Severe, Uncoded 07/24/18 13:57) FACIAL SWELLING TO INCLUDE MOUTH/TONGUE Past Medical History - General Information source: Patient - Social History Smoking Status: Never Smoker Chew tobacco use (# tins/day): No Frequency of alcohol use: Social Drug Abuse: Marijuana Family History: None Patient has suicidal ideation: No Patient has homicidal ideation: No - Past Medical History Cardiac Medical History: Reports: Hx Atrial Fibrillation, Hx Hypertension - m edicated Denies: Hx Heart Attack Pulmonary Medical History: Reports: Hx Asthma - inhaler prn/no hospitalizations Neurological Medical History: Denies: Hx Cerebrovascular Accident, Hx Seizures Renal/ Medical History: Denies: Hx Peritoneal Dialysis GI Medical History: Denies: Hx Hepatitis, Hx Hiatal Hernia, Hx Ulcer Infectious Medical History: Denies: Hx Hepatitis Past Surgical History: Denies: Hx Open Heart Surgery, Hx Pacemaker Review of Systems - Review of Systems Constitutional: denies: Fever EENT: denies: Eye discharge, Nose discharge Cardiovascular: denies: Chest pain, Palpitations Respiratory: denies: Short of breath Gastrointestinal: denies: Vomiting Genitourinary: denies: Dysuria Musculoskeletal: denies: Leg swelling Skin: Other - no hives. denies: Rash Neurological/Psychological: Other - no slurred speech -: Yes All other systems reviewed and negative Physical Exam - Vital signs Vitals: Temp Pulse Resp BP Pulse Ox 97.5 F 104 H 20 124/95 H 96 10/03/18 12:15 10/03/18 12:15 10/03/18 12:15 10/03/18 12:15 10/03/18 12:15 Notes: Reviewed vital signs and nursing note as charted by RN. CONSTITUTIONAL: Alert and oriented and responds appropriately to questions. Well-appearing; well-nourished HEAD: Normocephalic; atraumatic EYES: PERRL; Sclerae non-icteric ENT: Normal nose; no rhinorrhea; moist mucous membranes; pharynx without lesions noted NECK: Supple without meningismus; non-tender; no cervical lymphadenopathy, no masses CARD: Regular rate and rhythm; no murmurs; symmetric distal pulses RESP: Normal chest excursion without splinting or tachypnea; breath sounds clear and equal bilaterally ABD/GI: Normal bowel sounds; non-distended; soft, non-tender BACK: The back appears normal and is non-tender to palpation EXT: Normal ROM in all joints; non-tender to palpation; no edema SKIN: No acute lesions noted NEURO: CN 2-12 intact; 5/5 bilateral upper and lower extremity strength with sensation intact to light touch PSYCH: The patient's mood and manner are appropriate. Grooming and personal hygiene are appropriate. Course - Re-evaluation Re-evalutation: Given the above history and physical examination, we will order basic labs including a creatinine and CK level. Patient currently has no pain. Vital signs are stable. 10/03/18 15:05 Labs as recorded. These look very similar to the labs that the patient had recorded in July with a similar presentation and symptomatology. We will order another liter of fluid and recheck the patient's creatinine. CK as recorded. 10/03/18 15:09 Reviewing the patient's previous charting from his July visit, it appears that the patient had some right flank pain at that time. Incidental adrenal mass found. No hydronephrosis or kidney stones present. Patient did not have a presentation or history of present illness consistent with dehydration or moving at that time despite with the patient tells me today. I am not sure if he left that information out previously. However the creatinine is similar to the previous creatinine. Patient was supposed to follow-up with a program production specialist but has not yet. However, when I look at the triage note from previously seen by the physician junior administrative assistant, does state that the patient was doing shalonda work at that time. 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 Patient states he was doing work at that time and this time. Both incidences of creatinine elevation could be secondary to the shalonda work. We will provide another liter of fluid and recheck the patient's creatinine. 10/03/18 15:11 EKG shows heart of 87, normal sinus rhythm, normal axis, no ST elevation or depression, inverted T waves in lead III 10/03/18 17:36 Repeat creatinine as recorded. Patient has no body cramps and is not vomiting. Electrolytes otherwise as recorded with a normal potassium. Patient will be discharged home with instructions regarding to stay out of the heat with hydration and strict return precautions with follow-up with the primary care physician and program production specialist. - Vital Signs Vital signs: Temp Pulse Resp BP Pulse Ox 97.5 F 104 H 20 124/95 H 96 10/03/18 12:15 10/03/18 12:15 10/03/18 12:15 10/03/18 12:15 10/03/18 12:15 - Laboratory Result Diagrams: 10/03/18 12:37 10/03/18 16:35 Laboratory results interpreted by me: 10/03/18 10/03/18 10/03/18 12:37 12:37 12:37 RBC 5.64 H Hgb 13.1 L MCV 74 L MCH 23.1 L MCHC 31.2 L RDW 15.0 H Monocytes % 13.4 H BUN 31 H Creatinine 2.28 H Est GFR ( Amer) 36 L Est GFR (Non-Af Amer) 30 L Calcium 10.7 H Creatine Kinase 370 H Total Protein 8.4 H Urine Protein 100 H Urine Glucose (UA) 50 H 10/03/18 16:35 RBC Hgb MCV MCH MCHC RDW Monocytes % BUN 29 H Creatinine 1.67 H Est GFR ( Amer) 52 L Est GFR (Non-Af Amer) 43 L Calcium Creatine Kinase 381 H Total Protein Urine Protein Urine Glucose (UA) Discharge - Discharge Clinical Impression: Dehydration Acute renal failure Qualifiers: Acute renal failure type: unspecified Qualified Code(s): N17.9 - Acute kidney failure, unspecified Condition: Good Disposition: HOME, SELF-CARE Additional Instructions: Come back immediately with any body cramps, weakness or numbness, fevers or vomiting, or any other acute problems. Please make sure that you follow-up with the primary doctor and stay hydrated and out of the sun as discussed. Referrals: MAYCO PRUITT, DOMO-C [Primary Care Provider] - Follow up as needed
[2018-10-03 17:04] LABS: ANION GAP 8 (5-19); BLOOD UREA NITROGEN 29 mg/dL (7-20); CALCIUM 9.8 mg/dL (8.4-10.2); CARBON DIOXIDE 24 mmol/L (22-30); CHLORIDE 106 mmol/L (98-107); CREATINE KINASE 381 U/L (55-170); GLUCOSE 91 mg/dL (75-110); POTASSIUM 4.1 mmol/L (3.6-5.0); SODIUM 138.4 mmol/L (137-145)
[2018-10-03 18:20] VITALS: BP 142/107
--- NOTE | 2018-10-03 20:07 | EKG REPORT ---
SEVERITY:- ABNORMAL ECG - SINUS RHYTHM LEFT VENTRICULAR HYPERTROPHY BORDERLINE ST ELEVATION, ANTEROLATERAL LEADS : Confirmed by: Kimber Lind MD 03-Oct-2018 20:06:28
== END 2018-10-03 18:39 | disposition home or self-care (01) ==
LOC: ER 12:13
DX: N17.9 Acute kidney failure, unspecified (principal); E86.0 Dehydration; R53.1 Weakness; R25.2 Cramp and spasm; I10 Essential (primary) hypertension; Z79.899 Other long term (current) drug therapy; J45.909 Unspecified asthma, uncomplicated
CPT/HCPCS: 93005; 99284; 36415; 82553; 82550; 83690; 85025; 80053; 81001; 84484; 80307; 71046; 93010; J7030; J7120

== ENCOUNTER 2020-03-29 12:50 | Emergency (ER) | payer MEDICAID ==
[2020-03-29] MEDS ORDERED: HYDROCODONE/ACETAMINOPHEN 5-325 MG TABLET PO ONE (14:39)
[2020-03-29] MEDS ORDERED: DIPH/PERTUSS(ACELL)/TETANUS VAC/PF 0.5 ML SYR (>=10YO) IM ONE ×2 (14:39→20:00)
[2020-03-29] MEDS ORDERED: CEPHALEXIN 500 MG CAPSULE PO ONE ×2 (14:39→20:42)
[2020-03-29] MEDS ORDERED: LIDOCAINE 1% INJ (10 MG/ML) 10 ML MDV INJ ONE (14:39)
--- NOTE | 2020-03-29 14:41 | ER Document Report ---
ED Medical Screen (RME) - General Chief Complaint: Foreign Body Stated Complaint: RIGHT MIDDLE FINGER INJURY Time Seen by Provider: 03/29/20 14:37 Primary Care Provider: MAYCO PRUITT FNP-C [Primary Care Provider] - Follow up as needed Information source: Patient TRAVEL OUTSIDE OF THE [place] IN LAST 30 DAYS: No - HPI Patient complains to provider of: Splinter in right middle finger Notes: 03/29/20 14:40 Patient states he was working in his backyard on his fence when he accidentally got a large splinter in his right middle finger. He is unsure of his last tetanus shot. No other injuries or complaints. Exam: No distress, no respiratory distress, nontoxic appearing. Large foreign body noted in the right middle finger with a small amount of bleeding. Normal cap refill and sensation distally. An initial examination was made on the patient as part of the triage process, and it was determined a more comprehensive evaluation was necessary. Initial labs were ordered and patient was transferred to another provider in the ED who assumed care and finished evaluation and plan. - Related Data Allergies/Adverse Reactions: SEAFOOD Allergy (Severe, Uncoded 07/24/18 13:57) FACIAL SWELLING TO INCLUDE MOUTH/TONGUE Home Medications: med for HTN Past Medical History - Social History Chew tobacco use (# tins/day): No Frequency of alcohol use: Occasional Drug Abuse: Marijuana - Past Medical History Cardiac Medical History: Reports: Hx Atrial Fibrillation, Hx Hypertension - medicated Denies: Hx Heart Attack Pulmonary Medical History: Reports: Hx Asthma - inhaler prn/no hospitalizations Neurological Medical History: Denies: Hx Cerebrovascular Accident, Hx Seizures Renal/ Medical History: Denies: Hx Peritoneal Dialysis GI Medical History: Denies: Hx Hepatitis, Hx Hiatal Hernia, Hx Ulcer Infectious Medical History: Denies: Hx Hepatitis Past Surgical History: Denies: Hx Open Heart Surgery, Hx Pacemaker Physical Exam - Vital signs Vitals: Temp Pulse Resp BP Pulse Ox 97.7 F 101 H 20 139/83 H 99 03/29/20 13:32 03/29/20 13:32 03/29/20 13:32 03/29/20 13:32 03/29/20 13:32 Course - Vital Signs Vital signs: Temp Pulse Resp BP Pulse Ox 97.7 F 101 H 20 139/83 H 99 03/29/20 13:32 03/29/20 13:32 03/29/20 13:32 03/29/20 13:32 03/29/20 13:32 Doctor's Discharge - Discharge Referrals: MAYCO PRUITT FNP-C [Primary Care Provider] - Follow up as needed
--- NOTE | 2020-03-29 15:07 | RADIOLOGY REPORT (SQ) ---
EXAM DESCRIPTION: HAND RIGHT 3 VIEWS IMAGES COMPLETED DATE/TIME: 03/29/2020 2:58 pm REASON FOR STUDY: Large splinter right middle finger COMPARISON: None. EXAM PARAMETERS: NUMBER OF VIEWS: Three views. TECHNIQUE: AP, lateral and oblique radiographic images acquired of the right hand. LIMITATIONS: None. FINDINGS: MINERALIZATION: Normal. BONES: No acute fracture or dislocation. No worrisome bone lesions. JOINTS: Degenerative changes in the distal interphalangeal joints and carpal bones. SOFT TISSUES: No radiopaque foreign bodies. OTHER: No other significant finding. IMPRESSION: Degenerative changes. No radiopaque foreign bodies. No fracture or dislocation. TECHNICAL DOCUMENTATION: JOB ID: [id number] 2010 [employer]- All Rights Reserved Reading location - IP/workstation name: [email or web address]
[2020-03-29] MEDS ORDERED: LIDOCAINE 1% INJ-PF (10 MG/ML) 30 ML SDV INJ ONE ×2 (19:22→20:00)
--- NOTE | 2020-03-29 20:35 | ER Document Report ---
Entered by MICHELLE CASTELAN SCRIBE 03/29/201918 Acting as scribe for:DI COTE DO ED Foreign Body - General Chief Complaint: Foreign Body Stated Complaint: RIGHT MIDDLE FINGER INJURY Time Seen by Provider: 03/29/20 14:37 Primary Care Provider: MAYCO PRUITT FNP-C [NURSE PRACTITIONER] - Follow up as needed MARIZA EDWARDS DO [ACTIVE STAFF] - 03/30/20 Mode of Arrival: Ambulatory Information source: Patient Notes: This 59-year-old male patient presents to the emergency department today with complaints of a wood splinter to his right third finger. Patient reports that happened at work this morning about 7 hours prior to arrival. Patient is right- handed. Patient does not know when his last tetanus shot was. TRAVEL OUTSIDE OF THE [place] IN LAST 30 DAYS: No - HPI Location of foreign body: Finger - Related Data Allergies/Adverse Reactions: SEAFOOD Allergy (Severe, Uncoded 07/24/18 13:57) FACIAL SWELLING TO INCLUDE MOUTH/TONGUE Home Medications: med for HTN Past Medical History - General Information source: Patient - Social History Smoking Status: Never Smoker Cigarette use (# per day): No Chew tobacco use (# tins/day): No Frequency of alcohol use: Occasional Drug Abuse: Marijuana Lives with: Family Family History: None - Past Medical History Cardiac Medical History: Reports: Hx Atrial Fibrillation, Hx Hypertension - medicated Pulmonary Medical History: Reports: Hx Asthma - inhaler prn/no hospitalizations Review of Systems - Review of Systems Constitutional: No symptoms reported EENT: No symptoms reported Cardiovascular: No symptoms reported Respiratory: No symptoms reported Gastrointestinal: No symptoms reported Genitourinary: No symptoms reported Male Genitourinary: No symptoms reported Musculoskeletal: No symptoms reported Skin: See HPI, Other - splinter to right third finger Hematologic/Lymphatic: No symptoms reported Neurological/Psychological: No symptoms reported -: Yes All other systems reviewed and negative Physical Exam - Vital signs Vitals: Temp Pulse Resp BP Pulse Ox 97.7 F 101 H 20 139/83 H 99 03/29/20 13:32 03/29/20 13:32 03/29/20 13:32 03/29/20 13:32 03/29/20 13:32 - Notes Notes: Physical Exam: General: Alert, appears well. HEENT: Normocephalic. Atraumatic. PERRL. Extraocular movements intact. Oropharynx clear. Neck: Supple. Non-tender. Respiratory: No respiratory distress. Clear and equal breath sounds bilaterally. Cardiovascular: Regular rate and rhythm. Abdominal: Normal Inspection. Non-tender. No distension. Normal Bowel Sounds. Back: No gross abnormalities. Extremities: Moves all four extremities. Upper extremities: There is a wound distal to the right third PIP medially consistent with foreign body. Lower extremities: Normal inspection. No edema. Normal ROM. Neurological: Normal cognition. AAOx4. Normal speech. Psychological: Normal affect. Normal Mood. Skin: Warm. Dry. Normal color. Course - Re-evaluation Re-evalutation: 03/29/20 20:36 MDM 59 year old male with right middle finger injury with wood splinter. Occurred at his home earlier. Unsure of tetanus last and pain wiht rom of the involved finger. No other injury. - Vital Signs Vital signs: Temp Pulse Resp BP Pulse Ox 98.0 F 89 17 133/84 H 98 03/29/20 20:45 03/29/20 20:45 03/29/20 20:45 03/29/20 20:45 03/29/20 20:45 - Laboratory Results Critical Laboratory Results Reviewed: No Critical Results - Radiology Results Critical Radiology Results Reviewed: No Critical Results Procedures - Laceration/Wound Repair Right Hand Time completed: 19:30 Wound length (cm): 0.3 Wound's Depth, Shape: Superficial Anesthetic type: 1% Lidocaine Volume Anesthetic (mLs): 10 Wound explored: Foreign body removed - Several small pieces of wood splinter removed. Pt tolerated well with no apparent complication. 1 3-0 nylon suture placed to loosely approxmate the wound. Wound Repaired With: Sutures Suture Size/Type: 3:0, Ethilon Number of Sutures: 1 Layer Closure?: No Discharge - Discharge Clinical Impression: Open wound of right hand Qualifiers: Encounter type: initial encounter Open wound type: puncture wound Foreign body presence: with foreign body Qualified Code(s): S61.441A - Puncture wound with foreign body of right hand, initial encounter Disposition: HOME, SELF-CARE Additional Instructions: Keep the wound clean and dry and covered. Return here for fever, redness that extends up the arm, drainage from the wound or other problems or concerns. Call the referral doctor or your doctor in the am for follow up. Take the antibiotics as directed. Make sure to finish them. Prescriptions: Cephalexin Monohydrate [Keflex 500 mg Capsule] 500 mg PO TID #30 capsule Forms: Elevated Blood Pressure Referrals: MAYCO PRUITT FNP-C [NURSE PRACTITIONER] - Follow up as needed MARIZA EDWARDS DO [ACTIVE STAFF] - 03/30/20 I personally performed the services described in the documentation, reviewed and edited the documentation which was dictated to the scribe in my presence, and it accurately records my words and actions.
[2020-03-29] MEDS ORDERED: HYDROCODONE/ACETAMINOPHEN 5-325 MG (6 TAB/ER DISP) PO PRN (20:43)
[2020-03-29 20:50] VITALS: BP 133/84
== END 2020-03-29 21:26 | disposition home or self-care (01) ==
LOC: ER 12:50
DX: S61.441A Puncture wound with foreign body of right hand, initial encounter (principal); W45.8XXA Other foreign body or object entering through skin, initial encounter; Y93.89 Activity, other specified; Y92.096 Garden or yard of other non-institutional residence as the place of occurrence of the external cause; I10 Essential (primary) hypertension; J45.909 Unspecified asthma, uncomplicated; Z23 Encounter for immunization; Z79.899 Other long term (current) drug therapy; Z91.013 Allergy to seafood
CPT/HCPCS: 99284; 90471; 73130; 90715; 12001; J3490

== ENCOUNTER 2020-04-06 12:30 | Day surgery (SDC) | payer MEDICAID ==
[~2020-04-06 12:30] MED LIST changes: +CEFAZOLIN 2 GM/D5W RTU 2 GM/50 ML RTUPB IV PRN; +FENTANYL CITRATE INJ/PF 100 MCG/2 ML AMPUL ONE; -KETOROLAC TROMETHAMINE 0.45% 4 DROP/0.4 ML DROPERETTE OS PRN; +PROPOFOL INJ 200 MG/20 ML VIAL IV ONE
[2020-04-06 13:15] LABS: APPEARANCE,URINE CLEAR; BILIRUBIN,URINE NEGATIVE (NEGATIVE); COLOR,URINE YELLOW; GLUCOSE, URINE NEGATIVE (NEGATIVE); KETONES,URINE NEGATIVE (NEGATIVE); LEUKOCYTE ESTERASE,URINE NEGATIVE (NEGATIVE); NITRITE,URINE NEGATIVE (NEGATIVE); PROTEIN,URINE NEGATIVE (NEGATIVE); URINE SPECIFIC GRAVITY 1.028; UROBILINOGEN,URINE NEGATIVE mg/dL (<2.0)
--- NOTE | 2020-04-06 13:40 | RADIOLOGY REPORT (SQ) ---
EXAM DESCRIPTION: CHEST SINGLE VIEW IMAGES COMPLETED DATE/TIME: 04/06/2020 1:31 pm REASON FOR STUDY: PREOP COMPARISON: 10/03/2018 EXAM PARAMETERS: NUMBER OF VIEWS: One view. TECHNIQUE: Single frontal radiographic view of the chest acquired. RADIATION DOSE: NA LIMITATIONS: None. FINDINGS: LUNGS AND PLEURA: No opacities, masses or pneumothorax. No pleural effusion. MEDIASTINUM AND HILAR STRUCTURES: No masses. Contour normal. HEART AND VASCULAR STRUCTURES: Heart normal in size. Normal vasculature. BONES: No acute findings. HARDWARE: None in the chest. OTHER: No other significant finding. IMPRESSION: No evidence of acute cardiopulmonary abnormality. TECHNICAL DOCUMENTATION: JOB ID: [id number] 2010 [employer]- All Rights Reserved Reading location - IP/workstation name: [email or web address]
[2020-04-06 14:03] LABS: ABSOLUTE BASOPHILS # (AUTO) 0.1 10^3/uL (0.0-0.2); ABSOLUTE EOSINOPHILS # (AUTO) 0.3 10^3/uL (0.0-0.6); ABSOLUTE LYMPHOCYTES (AUTO) 1.8 10^3/uL (0.5-4.7); ABSOLUTE MONOCYTES (AUTO) 0.5 10^3/uL (0.1-1.4); ABSOLUTE NEUT (AUTO) 2.9 10^3/uL (1.7-8.2); BASOPHILS % (AUTO) 1.2 % (0-2); EOSINOPHILS % (AUTO) 5.3 % (0-6); HEMATOCRIT 38.4 % (37.9-51.0); HEMOGLOBIN 12.1 g/dL (13.5-17.0); LYMPHOCYTES % (AUTO) 31.7 % (13-45); MEAN CORPUSCULAR HEMOGLOBIN 23.1 pg (27.0-33.4); MEAN CORPUSCULAR HGB CONC 31.6 g/dL (32.0-36.0); MEAN CORPUSCULAR VOLUME 73 fl (80-97); PLATELET COUNT 318 10^3/uL (150-450); RED BLOOD COUNT 5.26 10^6/uL (4.35-5.55); RED CELL DISTRIBUTION WIDTH 14.6 % (11.5-14.0); SEGMENTED NEUTROPHILS % (AUTO) 52.8 % (42-78); TOTAL CELLS COUNTED % (AUTO) 100 %; WHITE BLOOD COUNT 5.6 10^3/uL (4.0-10.5)
[2020-04-06 14:14] LABS: ANION GAP 6 (5-19); BLOOD UREA NITROGEN 17 mg/dL (7-20); CALCIUM 9.3 mg/dL (8.4-10.2); CARBON DIOXIDE 25 mmol/L (22-30); CHLORIDE 107 mmol/L (98-107); GLUCOSE 101 mg/dL (75-110)
[2020-04-06] MEDS ORDERED: CEFAZOLIN 2 GM/D5W RTU 2 GM/50 ML RTUPB IV ONE (14:33)
[2020-04-06] MEDS ORDERED: LIDOCAINE 1% INJ-PF (10 MG/ML) 30 ML SDV ONE (15:02)
[2020-04-06] MEDS ORDERED: MORPHINE SULFATE 10 MG/ML INJ IV PRN (15:34)
[2020-04-06] MEDS ORDERED: DIPHENHYDRAMINE HCL 50 MG/ML VIAL IV PRN (15:34)
[2020-04-06] MEDS ORDERED: MEPERIDINE HCL/PF INJ 25 MG/1 ML DISP.SYRIN IV PRN (15:34)
[2020-04-06] MEDS ORDERED: PROMETHAZINE HCL INJ 25 MG/1 ML VIAL IV PRN ×2 (15:34)
[2020-04-06] MEDS ORDERED: FENTANYL CITRATE INJ/PF 100 MCG/2 ML AMPUL IV PRN ×3 (15:34)
[2020-04-06] MEDS ORDERED: ONDANSETRON HCL INJ/PF 4 MG/2 ML SDV IV PRN ×3 (15:34→16:19)
[2020-04-06] MEDS ORDERED: OXYCODONE-ACETAMINOPHEN 5-325 MG TABLET PO PRN ×2 (16:16→16:19)
[2020-04-06] MEDS: FENTANYL CITRATE INJ/PF 100 MCG/2 ML AMPUL ONE ×2 (16:19→16:26)
--- NOTE | 2020-04-06 16:19 | Operative Report ---
Operative Report DATE OF SURGERY: 04/06/20 PREOPERATIVE DIAGNOSIS: Foreign body right middle finger POSTOPERATIVE DIAGNOSIS: Same OPERATION: Irrigation debridement with excision foreign body right middle finger SURGEON: MARIZA EDWARDS ANESTHESIA: LMAC COMPLICATIONS: None ESTIMATED BLOOD LOSS: Minimal PROCEDURE: Indication for above procedure: 59-year-old male who sustained a puncture wound into his right middle finger. Patient was seen at the emergency room where x-rays were done demonstrating no evidence of foreign body however small amounts of wood fragments were removed in the emergency room however were completely successfully removed. Patient was then sent to my office at which point we discussed findings on examination and treatment options given retained foreign body decision was made to proceed with operative intervention. Procedure in detail: Patient was seen and evaluated in the preoperative holding area. The RIGHT upper extremity was initialized and marked. Patient received 2g of Ancef IV for bacterial prophylaxis. Patient was taken back to the operative room where transferred to the operative table. Once they were adequately anesthetized a nonsterile tourniquet was placed on the upper extremity. A surgical team debriefing was performed ensuring all instrumentation was available, the surgical procedure was discussed with possible concerns reviewed. A digital block was performed utilizing 10 mL of 1% lidocaine without epinephrine. The upper extremity was prepped with Betadine and draped in a sterile fashion. A timeout was done identifying correct patient, procedure and extremity everyone in attendance agree with this and verbalized no concerns. The extremity was exsanguinated the tourniquet was inflated to 250 mmHg. Patient's prior suture was removed. Nonviable skin along the dorsum of the PIP joint was unroofed. A counterincision was made proximally blunt dissection was performed small amount of purulent material was expressed. Retained wood fragment approximately 2 cm in length and a second one 1 cm in length was excised deep to the transverse recollected ligament but no involvement of the MCP or PIP joint. There is no evidence of capsule disruption. A small portion of the extensor tendon was debrided less than 1 mm. Wound was copiously irrigated with normal saline. No remanent foreign bodies were appreciated. Counterincision was closed with interrupted 4-0 nylon suture. The entry wound was allowed open for drainage. Tourniquet was deflated any peripheral bleeding was controlled with bipolar cautery. Soft dressing was applied. Sponge counts, instrument counts, needle counts counts were correct. Patient was then awoken from anesthesia. Transferred from the operating room table to the operating room stretcher. There was no intraoperative complications patient tolerated procedure well stable to PACU. Postoperative plan: Patient will follow-up as scheduled for wound check. They will call with any questions or concerns.
[2020-04-06] MEDS ORDERED: OXYCODONE-ACETAMINOPHEN 5-325 MG TABLET ONE (16:48)
[2020-04-06 18:21] VITALS: BP 130/84
--- NOTE | 2020-04-06 19:17 | EKG REPORT ---
SEVERITY:- ABNORMAL ECG - SINUS RHYTHM LEFT VENTRICULAR HYPERTROPHY : Confirmed by: Kimber Lind MD 06-Apr-2020 19:17:30
== END 2020-04-06 18:15 | disposition home or self-care (01) ==
LOC: OROUT 12:30
PROVIDERS: ATTEND Orthopaedic Surgery
DX: S61.242A Puncture wound with foreign body of right middle finger without damage to nail, initial encounter (principal); W45.8XXA Other foreign body or object entering through skin, initial encounter; Y92.007 Garden or yard of unspecified non-institutional (private) residence as the place of occurrence of the external cause; I10 Essential (primary) hypertension; Z79.899 Other long term (current) drug therapy; Z01.812 Encounter for preprocedural laboratory examination; Z20.822 Contact with and (suspected) exposure to COVID-19; Z86.19 Personal history of other infectious and parasitic diseases; J45.909 Unspecified asthma, uncomplicated
CPT/HCPCS: 36415; 87070; 87205; 85025; 0241U ×4; 87075; 80048; 81001; 71045; 93005; 93010; 20525; 11043; J2250; J3010; J3490; J2704; J0690; C9803; 1830